=== PATIENT | male | born 1990 | race Caucasian/White ===

== ENCOUNTER 2019-10-30 23:14 | Emergency (ER) | payer MEDICAID ==
[~2019-10-30] VITALS: Ht 172.7 cm; Wt 96.2 kg
[2019-10-30 23:18] VITALS: BP_SYST 133
--- NOTE | 2019-10-30 23:22 | NUR ---
Patient triaged and placed in waiting room. VSS and patient appears in no acute distress at this time. Accompanied by visitor, awaiting available bed, and MD notified of need for MSE.
--- NOTE | 2019-10-30 23:39 | NUR ---
Patient to ER bed 04 for evaluation. Side rails up. Report given to S[place] CRUMP.
--- NOTE | 2019-10-30 23:46 | NUR ---
Pt presents to ER with c/o Left hand pain. Pt states he "jumped a fence last night around 10 pm." Pt states he cut his hand when he jumped. Pt states "as the day went on, hand started to hurt more." Upon inspection, pt present with swelling and redness to L third digit finger and abrasions with no bleeding noted on left palm and 2nd digit. Pt states pain 10/10 and pt states pain is constant. Pt describes pain as throbbing.
--- NOTE | 2019-10-30 23:52 | NUR ---
ER Dr. Bradley at bedside examining patient.
[2019-10-31] MEDS ORDERED: MORPHINE 4 MG/ML INJ. SYRINGE IM ONE
[2019-10-31] MEDS ORDERED: DIPH-TET-PERTUS Vaccine 0.5 ML VIAL (ADACEL) I.M. ONE (00:15)
--- NOTE | 2019-10-31 00:58 | NUR ---
Patient given written and verbal discharge instructions and verbalizes understanding. ER MD discussed with patient the results and treatment provided. Patient in stable condition. ID arm band removed. Rx of keflex,motrin,norco given. Patient educated on pain management and to follow up with PMD. Pain Scale 3/10. Opportunity for questions provided and answered. Medication side effect fact sheet provided.
[2019-10-31 01:00] VITALS: BP_SYST 129
== END 2019-10-31 01:00 | disposition home or self-care (01) ==
LOC: SED 23:14
DX: L03.90 Cellulitis, unspecified (principal)
CPT/HCPCS: 90471; 90715; 96372; 99283; J2270

== ENCOUNTER 2019-11-02 18:52 | Emergency (ER) | payer MEDICAID ==
[~2019-11-02] VITALS: Ht 175.3 cm; Wt 96.2 kg
[2019-11-02 19:03] VITALS: BP_SYST 135
--- NOTE | 2019-11-02 20:00 | NUR ---
LWBS AT THIS TIME
== END 2019-11-02 20:00 | disposition left against medical advice (07) ==
LOC: SED 18:52
DX: M79.89 Other specified soft tissue disorders (principal); Z53.21 Procedure and treatment not carried out due to patient leaving prior to being seen by health care provider